=== PATIENT | male | born 1935 | race Caucasian/White ===

== ENCOUNTER 2016-07-07 09:25 | Emergency (ER) | payer OTHER ==
--- NOTE | 2016-07-07 13:59 | DIAGNOSTIC IMAGING REPORT ---
PROCEDURE: XR CHEST 1 VIEW INDICATION: FALLS TECHNIQUE: Single view chest. 1115 hours COMPARISON: None. FINDINGS: The heart size is at the upper limits of normal. Mediastinum and central vessels are normal. Minor strandy right base opacity. No effusion or pneumothorax. Intact osseous structures. IMPRESSION: 1. Heart size at the upper lobes are normal without acute CHF. 2. Minor strandy right base opacity, likely atelectasis. Correlate clinically.
--- NOTE | 2016-07-07 15:20 | ED CLINICAL REPORT ---
Clinical Report - Physicians/Mid Levels [facility] [address] [place] [address] 07/07/2016 9:26 Patient: AJIT ROWLAND Time Seen: 09:37. Arrived- By private vehicle. Historian- patient. History limited by poor comprehension, vague historian and confusion. Physical Exam limited by poor comprehension and confusion. HISTORY OF PRESENT ILLNESS Location of injuries- (none). Chief Complaint: FALL. The injury occurred today. Fell. Occurred at home. The patient denies pain. (nursing staff report that the patient lives at home with his son. Apparently he has been having increasing falls recently. These are apparently without injury). REVIEW OF SYSTEMS No chills, fever, sweats, calf pain or chest pain. No cough, difficulty breathing, pedal edema, palpitations or abdominal pain. No constipation, diarrhea, nausea, vomiting or urinary problems. All systems otherwise negative, except as recorded above. PAST HISTORY Problems: Congestive Heart Failure. Atrial Fibrillation. Cirrhosis. Additional Surgeries: Small bowel resection. Medications: Zantac Oral. Atenolol Oral. Allergies: Flagyl. Tetracycline. SOCIAL HISTORY Former smoker. No alcohol use or drug use. ADDITIONAL NOTES The nursing notes have been reviewed. PHYSICAL EXAM Vital Signs: 07/07/2016 09:28 BP: 128/68. HR: 87. RR: 16. O2 saturation: 99%. Temp: 97.4 F. Have been reviewed. Appearance: Alert. He is icteric, is confused and cooperative and appears relaxed. Eyes: Pupils equal, round and reactive to light. EOM intact. ENT: No dental injury. Pharynx normal. Neck: Painless ROM. Non-tender. CVS: Heart sounds normal. Respiratory: Breath sounds normal. Abdomen: No visible injury. Soft and nontender. Bowel sounds normal. No organomegaly. No mass. Back: No tenderness. ROM normal. Skin: Skin intact. Skin warm and dry. Normal skin color. Normal skin turgor. Extremities: Normal inspection. Pelvis stable. Extremities atraumatic. No lower extremity edema. Neuro: Altered mental status: confused, forgetful and disoriented to place and time. Responds to simple questions and commands. Not disoriented to person. No motor deficit. No sensory deficit. LABS, X-RAYS, AND EKG EKG: Rate: 84. Atrial fibrillation. Prior EKG unavailable. The study has been independently viewed by me. Chest X-ray: (IMPRESSION: 1. Heart size at the upper lobes are normal without acute CHF. 2. Minor strandy right base opacity, likely atelectasis. Correlate clinically). The X-rays were interpreted by the radiologist and contemporaneously by me. Laboratory Tests: UA-Culture if indicated: (ANTONELLA: 07/07/2016 11:38) ( [facility] 07/07[facility] 11:54) Final results Test Result Flag Units (Reference) URINE COLOR YELLOW URINE APPEARANCE CLEAR URINE GLUCOSE NEGATIVE (NEGATIVE) URINE BILIRUBIN NEGATIVE (NEGATIVE) URINE KETONE NEGATIVE (NEGATIVE) URINE SPECIFIC GRAVITY 1.015 (1.010-1.030) URINE PH 6.5 (5.0-8.0) URINE PROTEIN NEGATIVE (NEGATIVE) URINE UROBILINOGEN 1.0 EU/dL (0.2-1.0) URINE NITRITE NEGATIVE (NEGATIVE) URINE BLOOD NEGATIVE (NEGATIVE) URINE LEUK ESTERASE NEGATIVE (NEGATIVE) URINE RBC RARE rbc/hpf (0-1) URINE WBC NONE SEEN wbc/hpf (0-1) URINE EPITHELIAL CELLS 0-1 EPI/hpf (0-5) URINE BACTERIA TRACE (<1+) (NONE SEEN) URINE COMMENT CULT NOT INDICATED 1+ AMORPHOUSURINE CULTURES ARE SET-UP BASED ON THE FOLLOWING CRITERIA:POSITIVE NITRITEPOSITIVE LEUKOCYTE ESTERASEGREATER THAN 10 WHITE BLOOD CELLSMODERATE (2+) OR GREATER BACTERIA CBC w Diff: (ANTONELLA: 07/07/2016 11:50) ( [facility] 07/07/2016 12:15) Final results Test Result Flag Units (Reference) WHITE BLOOD COUNT 8.7 K/uL (4.5-11.5) RED BLOOD COUNT 4.26 L M/uL (4.50-5.90) HEMOGLOBIN 15.2 gm/dL (13.5-17.5) HEMATOCRIT 44.7 % (41.0-53.0) MEAN CELL VOLUME 105 H fL (80-100) MEAN CORPUSCULAR HGB 36 H pg (26-34) MEAN CORPUSCULAR HGB CONC 34 g/dL (31-37) RED CELL DISTRIBUTION WIDTH 16.5 H % (11.6-14.8) PLATELET COUNT 60 L K/uL (150-400) NEUTROPHIL % 82.2 H % (50-75) LYMPH % 7.3 L % (25-40) MONO % 9.9 % (3-14) EOSINOPHIL % 0.4 % (0-4) BASOPHIL % 0.2 % (0-2) BNP: (ANTONELLA: 07/07/2016 11:50) ( MsgRcvd 07/07/2016 12:34) Final results Test Result Flag Units (Reference) B-TYPE NATRIURETIC PEPTIDE 69.1 pg/ml (5-100) CMP: (ANTONELLA: 07/07/2016 11:50) ( MogRcvd 07/07/2016 13:22) Final results Test Result Flag Units (Reference) GLUCOSE 87 mg/dL (70-110) BUN 21 H mg/dL (7-18) CREATININE 1.3 mg/dL (0.6-1.3) Estimated GFR 56.17 mL/min Estimated GFR- >60 mL/min Note: Persistent reduction over 3 months in eGFR<60 mL/min/1.73 m2 defines CKD. Patients with eGFR values>=60 mL/min/1.73 m2 may also have CKD if evidence ofpersistent proteinuria. Additional information may be foundat www.kidney.org. SODIUM 136 mmol/L (136-145) POTASSIUM 4.3 mmol/L (3.5-5.1) CHLORIDE 102 mmol/L (98-107) CARBON DIOXIDE 24 mmol/L (21-32) CALCIUM 9.6 mg/dL (8.5-10.1) TOTAL PROTEIN 6.9 g/dL (6.4-8.2) ALBUMIN 2.8 L g/dL (3.3-5.0) BILIRUBIN, TOTAL 5.0 H mg/dL (0.0-1.0) Icteric specimen ALKALINE PHOSPHATASE 81 U/L (46-116) AST (SGOT) 60 H U/L (15-37) ALT (SGPT) 49 U/L (12-78) LIPASE 201 U/L (73-393) AMYLASE 120 H U/L (25-115) CPK 335 H U/L (24-260) TROPONIN I 0.06 ng/mL (0.00-1.5) TROPONIN REFERENCE RANGE:<0.1 NEGATIVE0.1-1.5 INDETERMINANT>1.5 POSITIVE CK-MB 2.1 ng/mL (0.5-3.2) %CKMB 0.6 % (0.0-4.0) . PROGRESS AND PROCEDURES Course of Care: Patient is stable. Patient/family counseled. Old medical records ordered. Old records unavailable. Disposition: Discharged. Condition: stable. CLINICAL IMPRESSION Possible chronic dementia. Fall on same level by stumbling. INSTRUCTIONS (talk with your doctor about gaining assistance in fall precautions at your home. Another option would be to consider moving to a facility with a higher level of care.). Warnings: GENERAL WARNINGS: Return or contact your physician immediately if your condition worsens or changes unexpectedly, if not improving as expected, or if other problems arise. Your Current Medications: CONTINUE TAKING THE FOLLOWING MEDICATIONS: Atenolol Oral. Zantac Oral. Follow-up: Follow up with your doctor Friday in two days. (Electronically signed by Will Malloy MD 07/10/2016 21:24)
--- NOTE | 2016-07-07 15:20 | ED ORDER SUMMARY ---
..... Patient: AJIT ROWLAND OrderSheet [facility] VisitID: [id number] [address] [place], [place] [id number] 81y, M Registration Date/Time: 07/07/2016 ORDER SHEET Weight: 105.2 kg (stated) Allergies: Tetracycline, Flagyl GENERAL ORDERS: Chest 1V Urgent (10:57 07/07/2016 Kelly KING) (Ack 10:59 KARLIoerner) (12:03 LWhalen R.N.) Buffer Inflated Pad (Continuous) (10:57 07/07/2016 Kelly KING) (11:27 LWhalen R.N.) CBC w Diff Urgent (10:58 07/07/2016 Kelly KING) (Ack 10:59 Yancyner) (12:03 LWhalen R.N.) CMP Urgent (10:58 07/07/2016 Kelly KING) (Ack 10:59 Dheeraj) (12:03 LWhalen R.N.) UA-Culture if indicated Urgent (10:58 07/07/2016 Kelly KING) (Ack 10:59 Dheeraj) (11:36 PWeiler ER Tech1) Amylase Urgent (10:58 07/07/2016 Kelly KING) (Ack 10:59 Yancyner) (12:03 LWhalen R.N.) Lipase Urgent (10:58 07/07/2016 Kelly KING) (Ack 10:59 Dheeraj) (12:03 LWhalen R.N.) CPK Urgent (10:58 07/07/2016 Kelly KING) (Ack 10:59 Dheeraj) (12:03 LWhalen R.N.) Troponin-I Urgent (10:58 07/07/2016 Kelly KING) (Ack 10:59 Dheeraj) (12:03 LWhalen R.N.) Pulse oximeter (10:58 07/07/2016 Kelly KING) (11:27 LWhalen R.N.) EKG - ER Stat (10:58 07/07/2016 Kelly KING) (11:27 LWhalen R.N.) BNP Urgent (11:05 07/07/2016 Kelly KING) (Ack 11:19 Dheeraj) (12:03 Jayson Haley) MEDICATION ORDERS: IV FLUIDS: IV Saline Lock (10:58 07/07/2016 Kelly KING) (11:58 Gianni Haley) ORDER SHEET NOTES: [Electronically signed by Gale Gan R.N. (17:32 07/07/2016)] [Electronically signed by Will Malloy MD (21:24 07/10/2016)] [Electronically locked/signed by Gale Gan R.N. (17:32 07/07/2016)]
--- NOTE | 2016-07-07 15:20 | ED NURSING NOTES ---
Clinical Report - Nurses [facility] [address] [place] [address] 07/07/2016 9:26 Patient: AJIT ROWLAND TRIAGE Triage time 09:28. Chief Complaint: FALL while standing. --09:33 Tanner Stafford R.N. 09:28 07/07/16. BP: 128/68. HR: 87. RR: 16. O2 saturation: 99% on room air. Temp: 97.4 F. --09:33 Tanner Stafford R.N. Acuity: LEVEL 3. Alert (Pt very slow to respond). --09:38 Tanner Stafford R.N. Weight: 105.2 kg stated. Height/Length: 74 inches. BMI: 29.8. --09:36 Tanner Stafford R.N. Medications Atenolol Oral. --09:30 Tanner Stafford R.N. Zantac Oral. --09:30 Tanner Stafford R.N. Allergies Tetracycline. --09:31 Tanner Stafford R.N. Flagyl. --09:31 Tanner Stafford R.N. History SOCIAL HX: Former smoker. No alcohol use or drug use. FALL RISK ASSESSMENT: Fall risk assessment completed per protocol. Risk factors identified include patient history of fall. --09:38 Tanner Stafford R.N. Primary physician (Robel BURCH). --09:40 Lurdes Chakraborty R.N. PROBLEMS: Congestive Heart Failure. Atrial Fibrillation. Cirrhosis. --09:32 Tanner Stafford R.N. ADDITIONAL SURGERIES: Small bowel resection. --09:36 Tanner Stafford R.N. Interventions ID band on patient. To room. --09:38 Tanner Stafford R.N. PHYSICAL ASSESSMENT GENERAL / NEURO / PSYCH: Alert. RESPIRATORY: Respirations not labored. --09:39 Lurdes Chakraborty R.N. HEENT: Pupils equal, round and reactive to light. Head non-tender. RESPIRATORY: Respirations not labored. Chest nontender. Breath sounds within normal limits. CVS: Normal heart rate and rhythm. Pulses within normal limits. Capillary refill less than 2 seconds. GI / : Abdomen soft and nontender. EXTREMITIES: Extremities exhibit normal ROM. Neuro-vascular status intact to the extremity. ( Uses walker to ambulate. Has no memory of falling this am.). SKIN: Skin intact. Skin is warm and dry. ( Jaundice). --14:35 Gale Gan R.N. NURSING PROGRESS NOTES 09:39 07/07/16. Patient identifiers checked. Call light placed in reach. Bed placed in lowest position. --09:39 Lurdes Chakraborty R.N. ( Pt seems mildly confused, stated his pharmacy was in "[place]", when tried to clarify, pt stated, no not [place], [place].). --09:42 Lurdes Chakraborty R.N. 10:45 07/07/16. BP: 120/55. HR: 87. RR: 18. O2 saturation: 99%. Temp: 98.6 F. Pain level now 5/10. --10:46 Gale Gan R.N. EKG time: (1130). EKG was ordered, performed by a matt and shown to the ED physician. --11:38 Adriano Rock ER Tech1 Patient ID band checked for patient name and birthdate: patient confirmed. Instructions provided to collect clean catch urine and patient verbalized understanding urine collected with return of matteo-colored clear urine; odor is normal; sample sent to lab for urinalysis and culture. Specimen labeled in the presence of the patient. --11:39 Adriano Rock ER Tech1 11:58 07/07/2016 Site #1 started via IV in the right wrist with an 20g angiocath, with aseptic technique and good blood return; one attempt. Blood drawn: rainbow set. Labeled in the presence of the patient and sent to the lab. Saline lock flushed with 10 mL saline. --11:58 Lurdes Chakraborty R.N. 16:30 07/07/16. BP: 128/54. HR: 77. RR: 19. O2 saturation: 99%. 16:00 07/07/16. BP: 112/53. HR: 77. RR: 17. O2 saturation: 99%. 15:07/07/16. BP: 122/73. HR: 74. RR: 16. O2 saturation: 99%. 15:07/07/16. BP: 125/65. HR: 71. RR: 17. O2 saturation: 99%. 14:07/07/16. BP: 142/73. HR: 73. RR: 17. O2 saturation: 100%. 13:07/07/16. BP: 112/72. HR: 78. RR: 18. O2 saturation: 99%. 13:07/07/16. BP: 137/107. HR: 93. RR: 18. O2 saturation: 97%. 12:07/07/16. BP: 135/77. HR: 87. RR: 20. O2 saturation: 99%. 12:07/07/16. BP: 124/70. HR: 84. RR: 19. O2 saturation: 99%. 11:07/07/16. BP: 119/52. HR: 83. RR: 18. O2 saturation: 98%. 10:07/07/16. BP: 120/55. HR: 87. RR: 18. O2 saturation: 99%. Temp: 98.6 F. Pain level now 5/10. 10:07/07/16. BP: 120/55. HR: 88. RR: 18. O2 saturation: 98%. --17:25 Gale Gan R.N. DISPOSITION / DISCHARGE ( Patient's son wants to talk to MD before DC.). --16:06 Gale Gan R.N. 16:07/07/16. BP: 128/54. HR: 77. RR: 19. O2 saturation: 99%. --17:26 Gale Gan R.N. Condition at departure: improved. No learning barriers present. Discharge instructions provided and reviewed with the patient. Reviewed warnings. Reviewed medication(s). Treatments reviewed. Reviewed referrals. Patient verbalized understanding. Written instructions provided in Swedish. The patient was discharged home and accompanied by family. He left the Emergency Department in a wheelchair and via private vehicle. Family member driving. --17:26 Gale Gan R.N. 16:29 07/07/16. Temp: 98.4 F. Pain level now 03/22. --17:29 Gale Gan R.N. Locked/Released at 07/07/2016 17:32 by Gale Gan R.N.
--- NOTE | 2016-07-07 15:20 | ED ORDER SUMMARY ---
..... Patient: AJIT ROWLAND OrderSheet [facility] VisitID: [id number] [address] [place], [place] [id number] 81y, M Registration Date/Time: 07/07/2016 ORDER SHEET Weight: 105.2 kg (stated) Allergies: Tetracycline, Flagyl GENERAL ORDERS: Chest 1V Urgent (10:57 07/07/2016 Kelly KING) (Ack 10:59 KARLIoerner) (12:03 LWhalen R.N.) Computer Forensic Examiner (Continuous) (10:57 07/07/2016 Kelly KING) (11:27 LWhalen R.N.) CBC w Diff Urgent (10:58 07/07/2016 Kelly KING) (Ack 10:59 Yancyner) (12:03 LWhalen R.N.) CMP Urgent (10:58 07/07/2016 Kelly KING) (Ack 10:59 Dheeraj) (12:03 LWhalen R.N.) UA-Culture if indicated Urgent (10:58 07/07/2016 Kelly KING) (Ack 10:59 Dheeraj) (11:36 PWeiler ER Tech1) Amylase Urgent (10:58 07/07/2016 Kelly KING) (Ack 10:59 Yancyner) (12:03 LWhalen R.N.) Lipase Urgent (10:58 07/07/2016 Kelly KING) (Ack 10:59 Dheeraj) (12:03 LWhalen R.N.) CPK Urgent (10:58 07/07/2016 Kelly KING) (Ack 10:59 Dheeraj) (12:03 LWhalen R.N.) Troponin-I Urgent (10:58 07/07/2016 Kelly KING) (Ack 10:59 Dheeraj) (12:03 LWhalen R.N.) Pulse oximeter (10:58 07/07/2016 Kelly KING) (11:27 LWhalen R.N.) EKG - ER Stat (10:58 07/07/2016 Kelly KING) (11:27 LWhalen R.N.) BNP Urgent (11:05 07/07/2016 Kelly KING) (Ack 11:19 Dheeraj) (12:03 Jayson Haley) MEDICATION ORDERS: IV FLUIDS: IV Saline Lock (10:58 07/07/2016 Kelly KING) (11:58 Gianni Haley) ORDER SHEET NOTES: [Electronically signed by Gale Gan R.N. (17:32 07/07/2016)] [Electronically signed by Will Malloy MD (21:24 07/10/2016)] [Electronically locked/signed by Gale Gan R.N. (17:32 07/07/2016)]
--- NOTE | 2016-07-10 21:25 | ED MED RECONCILIATION SUMMARY ---
Patient: AJIT ROWLAND Medication Reconciliation Report [facility] VisitID: [id number] [address] [place] [address] 81y, M Registration Date/Time: 07/07/2016 Weight: 105.2 kg Height/Length: 74 in. BMI: 29.8 ALLERGIES: Flagyl, Tetracycline The patient's Home Medications are listed below: CONTINUE TAKING THE FOLLOWING MEDICATIONS: Atenolol Oral Zantac Oral The source(s) of the original Home Medication information: Not obtained. The following Medications were given to the patient in the Emergency Department: None. The following Medications were prescribed to the patient: None.
--- NOTE | 2016-07-10 21:25 | ED DISCHARGE INSTRUCTIONS ---
Patient: AJIT ROWLAND General Instructions [facility] VisitID: [id number] [place] [address] 81y, M Registration Date/Time: 07/07/2016 Fall on same level by stumbling. INSTRUCTIONS (talk with your doctor about gaining assistance in fall precautions at your home. Another option would be to consider moving to a facility with a higher level of care.). Warnings: GENERAL WARNINGS: Return or contact your physician immediately if your condition worsens or changes unexpectedly, if not improving as expected, or if other problems arise. Your Current Medications: CONTINUE TAKING THE FOLLOWING MEDICATIONS: Atenolol Oral. Zantac Oral. Follow-up: Follow up with your doctor Friday in two days. ADDITIONAL INFORMATION Fall, Uncertain Cause You have had a fall today. but the cause of your fall is not certain. Falls can occur due to slipping, tripping or losing your balance. A fall can also occur from a fainting spell or seizure. Because the cause of your fall today is not certain, it is possible that a fainting spell or seizure was the cause. This means that it could happen again, without warning. If you fall again, without a cause, then you should return to this facility promptly to have further tests. Otherwise, follow up with your doctor as explained below. Home Care: 1) Rest today and resume your normal activities as soon as you are feeling back to normal. It is best to remain with someone who can check on you for the next 24 hours to watch for another episode of falling. 2) If you were injured during the fall, follow the advice from your doctor regarding care of your injury. 3) If you become light-headed or dizzy, lie down immediately or sit and lean forward with your head down. 4) As a precaution, do not drive a car or operate dangerous equipment, do not take a bath alone (use a shower instead) and do not swim alone until you see your doctor. A condition causing fainting or seizures must be ruled out before resuming these activities. 5)You may use acetaminophen (Tylenol) or ibuprofen (Motrin, Advil) to control pain, unless another pain medicine was prescribed. [ NOTE : If you have chronic liver or kidney disease or ever had a stomach ulcer or GI bleeding, talk with your doctor before using these medicines.] 6) Keep your appointments for any further testing that may have been scheduled for you. Follow Up: Unless, given other advice, call your doctor on the next office day to advise of your fall and to schedule an appointment. Get Prompt Medical Attention if any of the following occur: -- Another unexplained fall -- Dizziness, fainting or seizure -- Severe headache -- Chest pain or shortness of breath -- Palpitations (very rapid or very slow or irregular heart beat) -- Blood in vomit, stools (black or red color) -- Weakness of an arm or leg or one side of the face -- Difficulty with speech or vision Dementia & Caregiver Support (Advice For The Caregiver) Dementia is a chronic condition that affects the brain. It causes a gradual loss of memory. There may be trouble recognizing familiar people and places, or knowing what day it is. Memory, judgment and decision-making may also be affected. In severe cases there may be limited or no response to verbal commands. The most common form of dementia is Alzheimers disease. The cause of Alzheimer's disease is not fully understood. So far there is no cure. However, there are medicines to slow down the progress of the disease and to treat some of the symptoms. Some of the less common causes for dementia are curable. So, it is important to have a complete medical evaluation to look for conditions that can be treated. Home Care: A responsible person must be with the person who has advanced dementia at all times. He/she should not be left alone or unsupervised. In the case of advanced advanced dementia, keep medicines (prescription and [id number]) in a secure place, under the caregivers control. A person with advanced dementia should not be allowed to take their own medicines. This needs to be supervised by the caregiver. Ways to help a person with dementia: Activities:Keep to a daily routine. Changes in environment and schedules can be a source of stress for someone with dementia. Make a time schedule for common tasks of living such as bathing, dressing, taking medicines, meal times, going for walks, shopping, naps, and bed time. Communication:When speaking to a person with dementia, talk slowly and clearly. Use a gentle tone of voice. Choose short, simple words and sentences. Ask one question at a time. Do not interrupt, criticize or argue. Be calm and supportive. Use friendly facial expressions. Use pointing and touching to help communicate. If there has been loss of long-term memory, do not ask questions about past events. Instead, talk about what is happening now. Behavioral tips:Use lists, signs, family photos, clocks and calendars as memory aids. Label cabinets and drawers. Try to distract, not confront, the patient. When he/she becomes frustrated or upset, direct his/her attention to eating or some other activity of interest. Medical-Legal tips: Talk to your doctor and/or mid level java developer about getting a Power of Reproduction Technician for health care and for financial decisions. It is best to do this while the person can still sign legal documents and make his/her own legal decisions. Otherwise a court order will be needed. Support For The Caregiver: As the caregiver, you will need a lot of support for yourself. Caring for a person with dementia is a full-time job. It can drain your emotions and lead to frustration and anger towards the one you love. It is common to have feelings of grief over losing the familiar relationship that you once knew. As a caregiver to someone with dementia, you are at higher risk for depression, anxiety and stress reactions. Here are some tips to help you cope with being a caregiver: Learn about dementia and Alzheimers disease so you know what to expect. Find out about the resources in your community, including adult day care programs. Ask our staff for a referral to a nephrology social worker, if needed. Take care of yourself with a good diet, exercise and plenty of rest. Ask for help. Share some of the caretaking duties with family and friends. Make personal time for yourself. This is essential! Consider hiring an in-home sitter. Seek counseling and/or join a caregivers support group. Don't isolate yourself, or try to cope with this alone. In a support group, you can learn from others in a similar situation. Contact the Alzheimers Association ( ) or visit their website (www.alz.org) for more information. Follow-Up with the patients doctor or as advised by our staff. Get Prompt Medical Attention if any of the following occur: Frequent falling Refusal to eat or drink Violent behavior or behavior becomes too difficult to manage at home Increased drowsiness, or failure to respond normally Increasing headache, nausea or repeated vomiting Numbness or weakness of the face, one arm or one leg Slurred speech, trouble speaking, walking or seeing Fainting spell, dizziness or seizure Unexplained fever over 100.4 F (38.0 C) oral You have been given the following additional information: Fall, Uncertain Cause Dementia, Any Type (Electronically signed by Will Malloy MD 07/10/2016 21:24)
--- NOTE | 2016-07-10 21:25 | ED MED RECONCILIATION SUMMARY ---
Patient: AJIT ROWLAND Medication Reconciliation Report [facility] VisitID: [id number] [address] [place] [address] 81y, M Registration Date/Time: 07/07/2016 Weight: 105.2 kg Height/Length: 74 in. BMI: 29.8 ALLERGIES: Flagyl, Tetracycline The patient's Home Medications are listed below: CONTINUE TAKING THE FOLLOWING MEDICATIONS: Atenolol Oral Zantac Oral The source(s) of the original Home Medication information: Not obtained. The following Medications were given to the patient in the Emergency Department: None. The following Medications were prescribed to the patient: None.
--- NOTE | 2016-07-10 21:25 | ED MAR SUMMARY ---
..... Medication Administration Record [facility] [address] [place], [place] [id number] Patient: AJIT ROWLAND Visit ID: [id number] 81y, M Weight: 105.2 kg Height/Length: 74 in BMI: 29.8 ALLERGIES: Flagyl, Tetracycline
--- NOTE | 2016-07-10 21:25 | ED MAR SUMMARY ---
..... Medication Administration Record [facility] [address] [place], [place] [id number] Patient: AJIT ROWLAND Visit ID: [id number] 81y, M Weight: 105.2 kg Height/Length: 74 in BMI: 29.8 ALLERGIES: Flagyl, Tetracycline
== END 2016-07-07 16:30 | disposition home or self-care (01) ==
LOC: ED SRH 09:25
DX: R41.82 Altered mental status, unspecified (principal); R41.0 Disorientation, unspecified; Z04.3 Encounter for examination and observation following other accident; I48.91 Unspecified atrial fibrillation; I50.9 Heart failure, unspecified; Z79.899 Other long term (current) drug therapy; Z88.1 Allergy status to other antibiotic agents; Z88.8 Allergy status to other drugs, medicaments and biological substances
CPT/HCPCS: 90004; 90100; 90616; 90617; 91320; 92235; 92530; 92610; 95059